=== PATIENT | male | born 1960 | race Caucasian/White ===

== ENCOUNTER 2020-10-04 08:25 | Day surgery (SDC) | payer OTHER, SELFPAY ==
[2020-09-28 11:50] VITALS: BMI 20.9
--- NOTE | 2020-09-29 16:40 | MHC.SHP ---
Pre-Procedural Eval Section A The patient is an INPATIENT: No The History & Physical has been completed within 30 days and I have reviewed it.: Yes Section B Chief Complaint: Cataract Left Eye Allergies: Allergies Allergy/AdvReac Type Severity Reaction Status Date / Time No Known Allergies Allergy Verified 09/28/20 11:46 Plan Diagnosis/Plan: Unchanged I have reviewed the history and physical and performed a pertinent physical examination on my patient. No changes have occurred unless specified.
--- NOTE | 2020-10-01 08:52 | P.CONAN_ITS ---
Documented by User: Thao Esquivel 10/01/20 08:55 HPI - Anesthesia Eval Consult details Narrative: 60yo M for Left Cataract Extraction IOL Insertion No prev cataract PCP cleared [facility] Past Medical History Medical History Back pain Cataracts, both eyes History of heartburn Surgical History Surgical History No significant past surgical history Social History Social History Are you a primary special needs child caregiver to a significant other at home: No Do you presently have visiting nurse or other home services: No Smoking Status: Current every day smoker Packs Per Day: 0.5 Cigarettes Per Day: 10.0 Years Smoked: > 15 yrs Smoked in Last 30 Days: Yes Patient Interested in Nicotine Replacement: No Patient Given Instructions on How to Stop Smoking: Yes Date Education Initiated: 09/28/20 Use of substances other than those prescribed or required for medical reasons: No Have you been hit, kicked, punched, or otherwise hurt by someone within the past year? If so, by whom?: No Advance Directives: No Advance Directives Information Provided: No Advance Directives on File: No Recently lost weight without trying: No Meds Allergies Allergy/AdvReac Type Severity Reaction Status Date / Time No Known Allergies Allergy Verified 10/04/20 09:05 Home Medications Medication Instructions Recorded Confirmed Last Taken Type ibuprofen [Motrin IB] 400 mg PO Q8H PRN 09/28/20 09/28/20 Unknown History Exam Exam Date and Time: October 01, 2020 0852 Height,Weight and Vital Signs: Height 5 ft 6 in Weight 58.967 kg Assessment and Plan Assessment Anesthesia Assessment: Chart Reviewed Documented by User: Karrie Espinal 10/04/20 09:46 [facility] Past Medical History Medical History Back pain Cataracts, both eyes History of heartburn Family History Family history of problems with anesthesia: No Surgical History Surgical History No significant past surgical history History of Problems with Anesthesia: No Social History Social History Are you a primary special needs child caregiver to a significant other at home: No Do you presently have visiting nurse or other home services: No Smoking Status: Current every day smoker Packs Per Day: 0.5 Cigarettes Per Day: 10.0 Years Smoked: > 15 yrs Smoked in Last 30 Days: Yes Patient Interested in Nicotine Replacement: No Patient Given Instructions on How to Stop Smoking: Yes Date Education Initiated: 09/28/20 Use of substances other than those prescribed or required for medical reasons: No Have you been hit, kicked, punched, or otherwise hurt by someone within the past year? If so, by whom?: No Advance Directives: No Advance Directives Information Provided: No Advance Directives on File: No Recently lost weight without trying: No Meds Allergies Allergy/AdvReac Type Severity Reaction Status Date / Time No Known Allergies Allergy Verified 10/04/20 09:05 Home Medications Medication Instructions Recorded Confirmed Last Taken Type ibuprofen [Motrin IB] 400 mg PO Q8H PRN 09/28/20 09/28/20 Unknown History Exam Height,Weight and Vital Signs: Vital Signs Temp Pulse Resp BP Pulse Ox 10/04/20 09:11 98.3 F 66 18 118/77 99 Airway Mallampati Class: II TM Dist: >3cm Neck ROM: Full Denture: Upper and Lower Heart: RRR Lungs: CTAB Assessment and Plan Assessment Anesthesia Assessment: Anesthesia Plan Discussed and Chart Reviewed Final Anesthetic Review NPO: Yes ASA Class: II Final Preanesthetic Review: No Changes in Pt Med Stat, Meds/Allgs Chart Reviewed, Consent Obtained/Reviewed and Anes Risks/Benef Reviewed Patient Risk: Low Procedure Risk: Low Assessment/Block/Sedation in SS: Assess/Block/Sedation-SS Anesthetic Plan Anesthetic Plan: MAC: Disposition: Standard PACU
[2020-10-04 09:11] VITALS: BP 118/77; PULSE 66; RESP 18; TEMP 36.8; O2SAT 99
[2020-10-04] MEDS: Tetracaine HCl/PF 0.5% Oph Sol 4 ML DROPS 1 DROP EYE-LEFT (09:17)
[2020-10-04] MEDS: Lactated Ringers 500 ML 50 ML IV (09:17)
[2020-10-04] MEDS: Tropicamide 1 % Ophth Sol 3 ML BTL 1 DROP EYE-LEFT ×3 (09:19→09:27)
[2020-10-04] MEDS: Phenylephrine HCL 2.5% Oph SoL 2 ML BOTTLE 1 DROP EYE-LEFT ×3 (09:22→09:29)
--- NOTE | 2020-10-04 10:35 | HO.PNOPHT ---
Ophthalmology Procedure Procedure Date of Service: 10/04/20 Ophthalmology Viscoelastic: Healon Duet Dual Pack Pro Ophthalmology Lenses: TECLUC [id number] (19) Procedure Notes: PREOPERATIVE DIAGNOSIS: Decreased visual acuity left eye secondary to cataract POSTOPERATIVE DIAGNOSIS: Same PROCEDURE: Left cataract extraction with intraocular lens insertion SURGEON: Artis Browne M.D. ANESTHESIA: Topical/MAC ESTIMATED BLOOD LOSS: None COMPLICATIONS: None After obtaining informed consent, the patient was brought to the operation room suite and placed in the supine position. After adequate sedation per anesthesia, topical drops of Tetracaine were given to the left eye. The eye was then prepped and draped in the usual sterile fashion. The operating room microscope was then positioned over the operative eye and a lid speculum placed. A paracentesis was created. Viscoelastic was then instilled into the anterior chamber. A three plane incision was then created temporally, utilizing a 2.85 mm keratome. Capsulotomy forceps were then utilized to create a circular tear capsulotomy. Hydrodissection and hydrodelineation were carried out until adequate mobilization of the nucleus occurred. Phacoemulsification was then utilized to remove the dense central nucleus followed by removal of the cortical material utilizing the automated aspiration irrigation unit. Viscoat elastic was instilled into the posterior capsular bag followed by placement of a posterior chamber intraocular lens without difficulty. The residual Viscoat elastic was then removed utilizing the automated IA machine. The wound was check and found to be watertight. The patient tolerated the procedure well and the lid speculum was removed. Intracameral injection of Vigamox 0.1 mL followed by a subtenon injection of Kenalog-40 0.2 mL were administered. The patient will be seen in the a.m.
[2020-10-04 10:36] VITALS: BP 97/59; PULSE 58; RESP 14; TEMP 36.2; O2SAT 99
== END 2020-10-04 10:46 | disposition home or self-care (01) ==
PROVIDERS: PCP Internal Medicine; Visit Provider Ophthalmology
PROC: (CPT 66985; principal; 2020-10-04 11:00)
DX: H25.12 Age-related nuclear cataract, left eye (principal); H54.7 Unspecified visual loss; Z83.511 Family history of glaucoma; H40.003 Preglaucoma, unspecified, bilateral; F17.210 Nicotine dependence, cigarettes, uncomplicated
CPT/HCPCS: 66984; J2250; J3010; J3300; V2632

== ENCOUNTER 2020-10-18 06:54 | Day surgery (SDC) | payer OTHER, SELFPAY ==
[2020-09-28 11:57] VITALS: BMI 20.9
--- NOTE | 2020-10-13 07:36 | MHC.SHP ---
Pre-Procedural Eval Section A The patient is an INPATIENT: No The History & Physical has been completed within 30 days and I have reviewed it.: Yes Section B Chief Complaint: Cataract Right Eye Allergies: Allergies Allergy/AdvReac Type Severity Reaction Status Date / Time No Known Allergies Allergy Verified 10/04/20 09:05 Plan Diagnosis/Plan: Unchanged I have reviewed the history and physical and performed a pertinent physical examination on my patient. No changes have occurred unless specified.
--- NOTE | 2020-10-15 12:31 | P.CONAN_ITS ---
Documented by User: Thao Esquivel 10/15/20 12:32 HPI - Anesthesia Eval Consult details Narrative: 60yo M for Right Cataract Extraction IOL Insertion Left Cataract 10/04 Fent 50, Midaz 2 PCP cleared [facility] Past Medical History Medical History Back pain Cataracts, both eyes History of heartburn Surgical History Surgical History No significant past surgical history Social History Social History Are you a primary healthcare consultant to a significant other at home: No Do you presently have visiting nurse or other home services: No Smoking Status: Current every day smoker Packs Per Day: 0.5 Cigarettes Per Day: 10.0 Years Smoked: > 15 yrs Smoked in Last 30 Days: Yes Patient Interested in Nicotine Replacement: No Patient Given Instructions on How to Stop Smoking: Yes Date Education Initiated: 09/28/20 Use of substances other than those prescribed or required for medical reasons: No Have you been hit, kicked, punched, or otherwise hurt by someone within the past year? If so, by whom?: No Advance Directives: No Advance Directives Information Provided: No Advance Directives on File: No Recently lost weight without trying: No Meds Allergies Allergy/AdvReac Type Severity Reaction Status Date / Time No Known Allergies Allergy Verified 10/04/20 09:05 Home Medications Medication Instructions Recorded Confirmed Last Taken Type ibuprofen [Motrin IB] 400 mg PO Q8H PRN 09/28/20 09/28/20 Unknown History Exam Exam Date and Time: October 15, 2020 1231 Height,Weight and Vital Signs: Height 5 ft 6 in Weight 58.967 kg Assessment and Plan Assessment Anesthesia Assessment: Chart Reviewed Documented by User: Macario Still 10/18/20 07:21 [facility] Past Medical History Medical History Back pain Cataracts, both eyes History of heartburn Surgical History Surgical History No significant past surgical history Social History Social History Are you a primary healthcare consultant to a significant other at home: No Do you presently have visiting nurse or other home services: No Smoking Status: Current every day smoker Packs Per Day: 0.5 Cigarettes Per Day: 10.0 Years Smoked: > 15 yrs Smoked in Last 30 Days: Yes Patient Interested in Nicotine Replacement: No Patient Given Instructions on How to Stop Smoking: Yes Date Education Initiated: 09/28/20 Use of substances other than those prescribed or required for medical reasons: No Have you been hit, kicked, punched, or otherwise hurt by someone within the past year? If so, by whom?: No Advance Directives: No Advance Directives Information Provided: No Advance Directives on File: No Recently lost weight without trying: No Meds Allergies Allergy/AdvReac Type Severity Reaction Status Date / Time No Known Allergies Allergy Verified 10/04/20 09:05 Home Medications Medication Instructions Recorded Confirmed Last Taken Type ibuprofen [Motrin IB] 400 mg PO Q8H PRN 09/28/20 09/28/20 Unknown History Exam Airway Mallampati Class: II TM Dist: >3cm Neck ROM: Full Denture: Upper and Lower Heart: [id number] Lungs: cta b/l Assessment and Plan Assessment Anesthesia Assessment: Anesthesia Plan Discussed, PAT Visit and Chart Reviewed Final Anesthetic Review NPO: Yes ASA Class: II Final Preanesthetic Review: No Changes in Pt Med Stat, Meds/Allgs Chart Reviewed , Consent Obtained/Reviewed and Anes Risks/Benef Reviewed Patient Risk: Low Procedure Risk: Low Assessment/Block/Sedation in SS: Assess/Block/Sedation-SS Anesthetic Plan Anesthetic Plan: MAC: and Agree w/ Assess. and Plan Disposition: Standard PACU
[2020-10-18 07:05] VITALS: BP 100/58; PULSE 61; RESP 18; TEMP 36.6; O2SAT 98
[2020-10-18] MEDS: Tetracaine HCl/PF 0.5% Oph Sol 4 ML DROPS 1 DROP EYE-RIGHT (07:09)
[2020-10-18] MEDS: Tropicamide 1 % Ophth Sol 3 ML BTL 1 DROP EYE-RIGHT ×3 (07:10→07:15)
[2020-10-18] MEDS: Phenylephrine HCL 2.5% Oph SoL 2 ML BOTTLE 1 DROP EYE-RIGHT ×3 (07:10→07:15)
[2020-10-18] MEDS: Lactated Ringers 500 ML 50 ML IV (07:23)
[2020-10-18 08:43] VITALS: BP 112/60; PULSE 59; RESP 16; TEMP 36.4; O2SAT 99
--- NOTE | 2020-10-18 08:43 | HO.PNOPHT ---
Ophthalmology Procedure Procedure Date of Service: 10/18/20 Ophthalmology Viscoelastic: Healreji Ledezmat Dual Pack Pro Ophthalmology Lenses: TECLUC [id number] (18) Procedure Notes: PREOPERATIVE DIAGNOSIS: Decreased visual acuity right eye secondary to cataract POSTOPERATIVE DIAGNOSIS: Same PROCEDURE: Right cataract extraction with intraocular lens insertion SURGEON: Artis Browne M.D. ANESTHESIA: Topical/MAC ESTIMATED BLOOD LOSS: None COMPLICATIONS: None After obtaining informed consent, the patient was brought to the operating room suite and placed in the supine position. After adequate sedation per anesthesia, topical drops of Tetracaine were given to the right eye. The eye was then prepped and draped in the usual sterile fashion. The operating room microscope was then positioned over the operative eye and a lid speculum placed. A paracentesis was created. Viscoelastic was then instilled into the anterior chamber. A three plane incision was then created temporally, utilizing a 2.85 mm keratome. Capsulotomy forceps were then utilized to create a circular tear capsulotomy. Hydrodissection and hydrodelineation were carried out until adequate mobilization of the nucleus occurred. Phacoemulsification was then utilized to remove the dense central nucleus followed by removal of the cortical material utilizing the automated aspiration irrigation unit. Viscoelastic was instilled into the posterior capsular bag followed by placement of a posterior chamber intraocular lens without difficulty. The residual Viscoelastic was then removed utilizing the automated IA machine. The wound was checked and found to be watertight. The patient tolerated the procedure well and the lid speculum was removed. Intracameral injection of Vigamox 0.1 mL followed by a subtenon injection of Kenalog-40 0.2 mL were administered. The patient will be seen in the a.m.
== END 2020-10-18 09:26 | disposition home or self-care (01) ==
PROVIDERS: PCP Internal Medicine; Visit Provider Ophthalmology
PROC: (CPT 66985; principal; 2020-10-18 07:50)
DX: H25.11 Age-related nuclear cataract, right eye (principal); H54.7 Unspecified visual loss; F17.210 Nicotine dependence, cigarettes, uncomplicated
CPT/HCPCS: 66984; J2250; J3010; J3300; V2632